=== PATIENT | male | born 1950 | race Caucasian/White ===

== ENCOUNTER 2016-08-18 10:55 | Outpatient (CLI) | payer MEDICARE, BC ==
[2016-08-18] VITALS (15 sets, daily range): BP systolic 93–144; BP diastolic 68–118; PULSE 65–162
[~2016-08-18] VITALS: Ht 185.4 cm; Wt 90.9 kg
[2016-08-18 11:57] LABS: INR 1.4 (0.8-3.0); PROTHROMBIN TIME 16.1 SECONDS (9.7-12.8)
[2016-08-18 12:20] LABS: POTASSIUM 4.5 mmol/L (3.4-5.0)
[2016-08-18 12:51] LABS: THYROID STIMULATING HORMONE 2.99 uIU/mL (0.465-4.680)
[2016-08-18] MEDS ORDERED: ELIQUIS 5MG PO (13:03)
[2016-08-18] MEDS ORDERED: LOPRESSOR 225 MG/TAB PO (13:03)
[2016-08-18] MEDS ORDERED: ASPIRIN E.C. 8181 MG PO (13:04)
[2016-08-18] MEDS ORDERED: PROPECIA1 MG PO (13:04)
[2016-08-18] MEDS ORDERED: CLARITIN 1010 MG/TAB PO (13:05)
[2016-08-18] MEDS ORDERED: MULTIPLE VITAMI1 CAP PO (13:05)
[2016-08-18] MEDS ORDERED: VITAMINC1000TA PO (13:06)
[2016-08-18] MEDS ORDERED: NATURE'S BLEND400 IU PO (13:07)
[2016-08-18] MEDS ORDERED: CO Q-1010 M1 PO (13:07)
[2016-08-18] MEDS ORDERED: INOSITOL PO (13:08)
[2016-08-18] MEDS ORDERED: GLUCOSAMINE & C1 CA1 PO (13:08)
[2016-08-18] MEDS ORDERED: NASACORT OTC NS (13:09)
[2016-08-18] MEDS ORDERED: PROSVENT PO (13:09)
[2016-08-18] MEDS ORDERED: PACERONE400 MG PO (17:20)
== END 2016-08-18 18:12 | disposition home or self-care (01) ==
LOC: EUO 10:55
PROVIDERS: Internal Medicine Interventional Cardiology
DX: I08.0 Rheumatic disorders of both mitral and aortic valves (principal); I48.91 Unspecified atrial fibrillation
CPT/HCPCS: G9654; J0282; J2250; J2704; J3010; J7030; J7060